=== PATIENT | female | born 1960 | race Two or more races ===

== ENCOUNTER 2017-12-13 10:29 | Outpatient (CLI) | payer OTHER | END 2017-12-13 10:48 | disposition home or self-care (01) | LOC: RAD 501 10:29 | DX: M25.571 Pain in right ankle and joints of right foot (principal) ==

== ENCOUNTER 2018-10-07 14:01 | Outpatient (CLI) | payer OTHER | END 2018-10-07 14:09 | disposition home or self-care (01) | LOC: MAMO-SONO 14:01 | DX: N95.0 Postmenopausal bleeding (principal); Z12.31 Encounter for screening mammogram for malignant neoplasm of breast; F32.89 Other specified depressive episodes ==

== ENCOUNTER → 2018-10-14 | Outpatient (CLI) | payer OTHER | END | disposition home or self-care (01) | LOC: SONOGRAMA 14:26 | DX: N60.29 Fibroadenosis of unspecified breast (principal) ==

== ENCOUNTER → 2018-10-14 | Outpatient (CLI) | payer OTHER | END | disposition home or self-care (01) | LOC: NUCLEAR 10-07 14:00 | DX: M81.0 Age-related osteoporosis without current pathological fracture (principal) ==

== ENCOUNTER → 2019-07-06 | Emergency (ER) | payer OTHER ==
[~2019-07-06] VITALS: Ht 167.6 cm; Wt 90.7 kg
[~2019-07-06] MED LIST: [UNRECOGNIZED DRUG - OTHER]
== END | disposition home or self-care (01) ==
LOC: ER 16:03
DX: R42 Dizziness and giddiness (principal); G44.209 Tension-type headache, unspecified, not intractable

== ENCOUNTER 2020-01-06 12:31 | Emergency (ER) | payer OTHER ==
[~2020-01-06] VITALS: Ht 167.6 cm; Wt 90.7 kg
[2020-01-06] MEDS ORDERED: SINGULAIR10 MG PO (13:06)
[2020-01-06] MEDS ORDERED: SYMBICORT 16010.2 GM IH (13:06)
[2020-01-06] MEDS ORDERED: AVAPRO150 MG PO (13:07)
[2020-01-06] MEDS ORDERED: SYNTHROID50 MCG PO (13:08)
== END 2020-01-06 21:23 | disposition home or self-care (01) ==
LOC: ER 12:31
DX: K29.60 Other gastritis without bleeding (principal); Z03.818 Encounter for observation for suspected exposure to other biological agents ruled out; R10.32 Left lower quadrant pain; R11.2 Nausea with vomiting, unspecified; R19.7 Diarrhea, unspecified

== ENCOUNTER 2022-10-10 11:19 | Emergency (ER) | payer OTHER ==
[~2022-10-10] VITALS: Ht 167.6 cm; Wt 90.7 kg
[~2022-10-10 11:19] MED LIST changes: +AVAPRO150 MG PO; +SINGULAIR10 MG PO; +SYMBICORT 16010.2 GM IH; +SYNTHROID50 MCG PO
== END 2022-10-10 15:45 | disposition home or self-care (01) ==
LOC: ER 11:19
DX: U07.1 COVID-19 (principal); Z88.6 Allergy status to analgesic agent; I10 Essential (primary) hypertension; E03.9 Hypothyroidism, unspecified

== ENCOUNTER 2023-09-09 08:48 | Emergency (ER) | payer OTHER ==
[~2023-09-09] VITALS: Ht 167.6 cm; Wt 95.7 kg
[2023-09-09] MEDS ORDERED: LOSARTAN POTASS50 MG PO (09:13)
[2023-09-09 10:45] LABS: HEMATOCRIT 40.1 % (36.0-45.00); HEMOGLOBIN 14.1 g/dL (12.0-15.00); MEAN CORPUSCULAR HEMOGLOBIN 30.6 pg (27.00-32.0); MEAN CORPUSCULAR HGB CONC 35.2 g/dl (32.0-36.0); PLATELET COUNT 260 K/uL (150-450); RED BLOOD COUNT 4.61 M/uL (4.00-6.00); RED CELL DISTRIBUTION WIDTH 13.7 % (11.5-14.5)
[2023-09-09 11:00] LABS: CALCIUM 8.9 mg/dL (8.5-10.1); CREATININE SERUM 0.88 mg/dL (0.55-1.02); GFR 64.69; POTASSIUM 3.75 mEq/L (3.5-5.1)
[2023-09-09 11:08] LABS: PH,URINE 5.5 (5.0-8.0); URINE APPEARANCE Cloudy; URINE BILIRRUBIN Negative (NEGATIVE); URINE BLOOD Small; URINE COLOR Yellow; URINE GLUCOSE Negative (NEGATIVE); URINE LEUKOCYTE Moderate; URINE NITRATE Positive; URINE PROTEIN Negative (NEGATIVE); URINE UROBILINOGEN 0.2 E.U./dl
[2023-09-09 11:12] LABS: URINE EPITHELIAL CELLS 47.4 uL (0.0-38.8); URINE WBC 190.9 uL (0.0-23.2)
[2023-09-09 12:14] LABS: URINE BACTERIA > 9821.5 uL (0.0-1933)
[2023-09-09 12:15] LABS: URINE CRYSTALS FEW /HPF
== END 2023-09-09 16:03 | disposition home or self-care (01) ==
LOC: ER 08:49
PROVIDERS: General Practice
DX: M54.9 Dorsalgia, unspecified (principal); N39.0 Urinary tract infection, site not specified; M54.50 Low back pain, unspecified; Z88.6 Allergy status to analgesic agent

== ENCOUNTER 2023-10-07 12:43 | Outpatient (CLI) | payer OTHER ==
[~2023-10-07 12:43] MED LIST changes: +LOSARTAN POTASS50 MG PO
== END 2023-10-07 12:51 | disposition home or self-care (01) ==
LOC: MRI 12:43
PROVIDERS: ATTEND Internal Medicine Rheumatology
DX: M54.59 Other low back pain (principal); M05.79 Rheumatoid arthritis with rheumatoid factor of multiple sites without organ or systems involvement; M47.814 Spondylosis without myelopathy or radiculopathy, thoracic region; M47.817 Spondylosis without myelopathy or radiculopathy, lumbosacral region

== ENCOUNTER 2024-03-13 11:58 | Emergency (ER) | payer OTHER ==
[~2024-03-13] VITALS: Ht 167.6 cm; Wt 95.3 kg
[2024-03-13] MEDS ORDERED: MECLIZINE HCL 25 MG TABLET PO STA (13:50)
[2024-03-13] MEDS ORDERED: MECLIZINE HCL 25 MG TABLET PO ONE (14:10)
[2024-03-13 14:34] LABS: HEMATOCRIT 38.2 % (36.0-45.00); HEMOGLOBIN 13.4 g/dL (12.0-15.00); MEAN CORPUSCULAR HEMOGLOBIN 31.3 pg (27.00-32.0); MEAN CORPUSCULAR HGB CONC 35.2 g/dl (32.0-36.0); PLATELET COUNT 264 K/uL (150-450); RED BLOOD COUNT 4.29 M/uL (4.00-6.00); RED CELL DISTRIBUTION WIDTH 13.9 % (11.5-14.5)
[2024-03-13 15:08] LABS: ALBUMIN 3.5 gm/dL (3.4-5.0); BILIRUBIN TOTAL 0.41 mg/dL (0.3-1.2); CREATININE SERUM 0.9 mg/dL (0.55-1.02); GFR 62.84; GLOBULINA 3.5 G/DL (2.4-3.5); POTASSIUM 3.79 mEq/L (3.5-5.1)
== END 2024-03-13 17:03 | disposition home or self-care (01) ==
LOC: ER 11:59
PROVIDERS: General Practice
DX: R42 Dizziness and giddiness (principal)

== ENCOUNTER 2024-06-30 15:29 | Inpatient (IN) | payer OTHER ==
[~2024-06-30] VITALS: Ht 152.4 cm; Wt 97.5 kg
--- NOTE | 2024-06-30 15:50 | NUR ---
PACIENTE ALERTA Y ORIENTADA X 3. REFIERE TENER ASMA DESDE SHELDON LO QUE LE DIFICULTA RESPIRAR.
[2024-06-30] MEDS ORDERED: ALBUTEROL SULFATE 3 ML/2.5 MG AMPUL.NEB IH SCH (20:00)
[2024-06-30] MEDS ORDERED: GUAIFENESIN/DEXTROMETHORPHAN 10ML BLIST.PACK PO STA (20:00)
[2024-06-30] MEDS ORDERED: IPRATROPIUM BROMIDE 0.5 MG/2.5 ML AMPUL.NEB IH SCH (20:00)
[2024-06-30] MEDS ORDERED: METHYLPREDNISOLONE SOD SUCC 40 MG VIAL IV STA (20:01)
[2024-06-30 20:39] LABS: HEMATOCRIT 37.6 % (36.0-45.00); HEMOGLOBIN 13.3 g/dL (12.0-15.00); MEAN CELL VOLUME 88.8 fL (80.00-100.00); MEAN CORPUSCULAR HEMOGLOBIN 31.4 pg (27.00-32.0); MEAN CORPUSCULAR HGB CONC 35.4 g/dl (32.0-36.0); PLATELET COUNT 239 K/uL (150-450); RED BLOOD COUNT 4.24 M/uL (4.00-6.00); RED CELL DISTRIBUTION WIDTH 13.7 % (11.5-14.5)
[2024-06-30 21:00] LABS: CREATININE SERUM 1.16 mg/dL (0.55-1.02); GFR 46.88; POTASSIUM 3.79 mEq/L (3.5-5.1)
--- NOTE | 2024-06-30 21:04 | NUR ---
SE COLECTAN MUESTRAS DE LABORATORIO Y SE ADMINISTRAN MEDICAMENTOS ADELAIDE ORDEN MEDICA BAJO MEDIDAS ASEPTICAS. SE NOTIFICAN TERAPIAS Y ABGS PENDIENTES. SE NOTIFICA X-RAY
[2024-06-30] MEDS ORDERED: LOSARTAN POTASSIUM 50 MG TABLET PO SCH (23:20)
[2024-06-30] MEDS ORDERED: OSELTAMIVIR PHOSPHATE 75 MG CAPSULE PO STA (23:21)
[2024-06-30] MEDS ORDERED: ACETAMINOPHEN 325 MG TABLET PO PRN (23:30)
[2024-07-01] MEDS ORDERED: GUAIFENESIN 100 MG/5 ML BLIST.PACK PO SCH
[2024-07-01 00:08] LABS: ABG PH 7.489 (7.35-7.45); ABG pCO2 28.5 mmHg (35-45)
[2024-07-01 00:09] LABS: ABG PO2 63.4 mmHg (80-100); BASE EXCESS -0.8 mmol/l; BICARBONATE 21.2 mmol/l (23-25); SaO2 93.7 %
[2024-07-01 00:10] LABS: allen test SATISFACTORY; o2 21 %; puncture site RADIAL RIGHT
[2024-07-01] MEDS ORDERED: LEVALBUTEROL HCL 0.63 MG/3 ML SOLUTION IH SCH (01:00)
[2024-07-01] MEDS ORDERED: LEVOTHYROXINE SODIUM 50 MCG TABLET PO SCH (06:00)
[2024-07-01 06:35] LABS: CREATININE SERUM 0.9 mg/dL (0.55-1.02); GFR 62.84; POTASSIUM 4.05 mEq/L (3.5-5.1)
[2024-07-01 06:41] LABS: C-REACTIVE PROTEIN 9.85 MG/DL (0.00-0.29)
[2024-07-01 08:30] VITALS: BP 146/91; O2SAT 100
[2024-07-01 08:45] VITALS: BP 148/78; O2SAT 96
[2024-07-01] MEDS ORDERED: levoFLOXacin IN DEXTROSE 5 % 500MG/100ML PIGGYBAG IV NR (10:00)
[2024-07-01] MEDS ORDERED: OSELTAMIVIR PHOSPHATE 75 MG CAPSULE PO NR (10:00)
[2024-07-01] MEDS ORDERED: RIVAROXABAN 10 MG TAB PO NR (10:00)
[2024-07-01] MEDS ORDERED: BUDESONIDE 0.5 MG/2 ML AMPUL.NEB IH NR (10:00)
[2024-07-01] MEDS ORDERED: PANTOPRAZOLE SODIUM 40 MG TABLET.DR PO NR (10:00)
[2024-07-01] MEDS ORDERED: LEVALBUTEROL HCL 1.25 MG/3 ML SOLUTION IH SCH (13:00)
[2024-07-01 16:00] VITALS: BP 113/77; O2SAT 99
[2024-07-01] MEDS ORDERED: OSELTAMIVIR PHOSPHATE 75 MG CAPSULE PO SCH (17:00)
[2024-07-01] MEDS ORDERED: METHYLPREDNISOLONE SOD SUCC 40 MG VIAL IV SCH ×2 (17:00)
[2024-07-01] MEDS ORDERED: BUDESONIDE 0.5 MG/2 ML AMPUL.NEB IH SCH (21:00)
[2024-07-02] VITALS: BP 115/74; O2SAT 100
[2024-07-02 08:28] VITALS: BP 107/62; O2SAT 99
[2024-07-02] MEDS ORDERED: PANTOPRAZOLE SODIUM 40 MG TABLET.DR PO SCH (09:00)
[2024-07-02] MEDS ORDERED: RIVAROXABAN 10 MG TAB PO SCH (09:00)
[2024-07-02] MEDS ORDERED: levoFLOXacin IN DEXTROSE 5 % 500MG/100ML PIGGYBAG IV SCH (09:00)
[2024-07-02] MEDS ORDERED: METHYLPREDNISOLONE ACETATE 80 MG/ML VIAL IM NR (12:15)
[2024-07-02] MEDS ORDERED: METHYLPREDNISOLONE SOD SUCC 40 MG VIAL IV SCH (21:00)
[2024-07-02 21:07] LABS: ABG PH 7.432 (7.35-7.45)
[2024-07-02 21:08] LABS: ABG PO2 88.4 mmHg (80-100); ABG pCO2 29.4 mmHg (35-45); BASE EXCESS -3.7 mmol/l; BICARBONATE 19.2 mmol/l (23-25); Tco2 20.1 mmol/l; allen test SATISFACTORY; o2 21 %; puncture site RADIAL LEFT
[2024-07-03] VITALS: BP 117/74; O2SAT 97
[2024-07-03 08:00] VITALS: BP 128/64; O2SAT 100
[2024-07-03] MEDS ORDERED: METHYLPREDNISOLONE SOD SUCC 40 MG VIAL IV SCH (09:00)
[2024-07-03 16:11] VITALS: BP 128/65; O2SAT 98
[2024-07-03] MEDS ORDERED: OSEL75CA PO (17:24)
[2024-07-03] MEDS ORDERED: CIPRO500 MG PO (17:43)
[2024-07-03] MEDS ORDERED: [UNRECOGNIZED DRUG - OTHER] PO (17:44)
[2024-07-03] MEDS ORDERED: BUDEO.25 IH (17:47)
[2024-07-03] MEDS ORDERED: MEDROLPACK PO (17:48)
[2024-07-03] MEDS ORDERED: XOPENEX CO1.25 MG/0. IH (17:49)
== END 2024-07-03 20:55 | disposition home or self-care (01) | DRG 203 ==
LOC: ER 15:31 → SURH 23:21 → SEC-K 23:21 → SURH 07-01 05:53
PROVIDERS: General Practice; ADMIT Internal Medicine; ATTEND Internal Medicine
DX: J45.51 Severe persistent asthma with (acute) exacerbation (principal); J10.1 Influenza due to other identified influenza virus with other respiratory manifestations; R09.02 Hypoxemia; I10 Essential (primary) hypertension; E03.9 Hypothyroidism, unspecified

== ENCOUNTER 2024-08-03 13:00 | Outpatient (CLI) | payer OTHER ==
[~2024-08-03 13:00] MED LIST changes: +BUDEO.25 IH; +CIPRO500 MG PO; +MEDROLPACK PO; +OSEL75CA PO; +XOPENEX CO1.25 MG/0. IH; +[UNRECOGNIZED DRUG - OTHER] PO
== END 2024-08-03 13:34 | disposition home or self-care (01) ==
LOC: MAMO-SONO 13:00
DX: Z12.31 Encounter for screening mammogram for malignant neoplasm of breast (principal)

== ENCOUNTER 2024-10-12 15:10 | Outpatient (CLI) | payer OTHER | END 2024-10-12 15:15 | disposition home or self-care (01) | LOC: RAD 15:10 | PROVIDERS: ATTEND Internal Medicine Rheumatology | DX: M05.79 Rheumatoid arthritis with rheumatoid factor of multiple sites without organ or systems involvement (principal) ==

== ENCOUNTER 2025-07-12 15:57 | Emergency (ER) | payer OTHER ==
[~2025-07-12] VITALS: Ht 167.6 cm; Wt 97.5 kg
[2025-07-12] MEDS ORDERED: IPRATROPIUM BROMIDE 0.5 MG/2.5 ML AMPUL.NEB IH ONE (19:30)
[2025-07-12] MEDS ORDERED: ALBUTEROL SULFATE 3 ML/2.5 MG AMPUL.NEB IH SCH (19:30)
[2025-07-12] MEDS ORDERED: GUAIFENESIN 200 MG/10 ML BLIST.PACK PO ONE (19:30)
[2025-07-12] MEDS ORDERED: 0.9 % SODIUM CHLORIDE 1,000 ML IV ONE (19:30)
[2025-07-12] MEDS ORDERED: CEFTRIAXONE SODIUM 1,000 MG VIAL IV ONE (19:30)
[2025-07-12] MEDS ORDERED: ACETAMINOPHEN 500 MG GEL..CAP PO ONE (19:30)
[2025-07-12] MEDS ORDERED: METHYLPREDNISOLONE SOD SUCC 125 MG VIAL IV ONE (19:30)
[2025-07-12 19:41] LABS: BASO % 0.2 % (0.1-1.2); EOS # 0.01 (0.04-0.54); EOS % 0.2 % (0.7-7.0); LYMPH # 0.49 (1.18-3.74); LYMPH % 12.2 % (19.3-53.1); MEAN PLATELET VOLUME 8.90 fl (9.4-12.4); MONO # 0.42 (0.24-0.82); MONO % 10.5 % (4.7-12.5); NEUT # 3.06 (1.56-6.13); NEUT % 76.4 % (34.0-71.1); RED CELL DISTRIBUTION WIDTH 15.0 % (11.6-14.4)
[2025-07-12 19:58] LABS: ERYTHROCYTE SEDIMENTATION RATE 20 mm/hr (0-30)
[2025-07-12 20:00] LABS: INR 1.04
[2025-07-12 20:04] LABS: ALT/SGPT 55.0 U/L (12-78); AST/SGOT 30.0 U/L (15-37); BILIRUBIN TOTAL 0.88 mg/dL (0.3-1.2); BUN CREA RATIO 14.0 (7.0-25.0); CREATININE SERUM 1.03 mg/dL (0.55-1.02); GFR 53.61; GLOBULINA 4.2 G/DL (2.4-3.5); GLUCOSE FASTING 124.0 mg/dL (65-100); OSMOLALITY SERUM 276.0 MOSM/KG (275-295)
[2025-07-12 21:31] LABS: COVID-19 AG NEGATIVE (NEGATIVE)
[2025-07-12] MEDS ORDERED: OSELTAMIVIR PHOSPHATE 75 MG CAPSULE PO ONE (21:45)
[2025-07-13 01:36] LABS: URINE APPEARANCE Clear; URINE BILIRRUBIN Negative (NEGATIVE); URINE BLOOD Small; URINE COLOR Yellow; URINE GLUCOSE Negative (NEGATIVE); URINE KETONE 15 (NEGATIVE); URINE LEUKOCYTE Trace; URINE NITRATE Negative; URINE PROTEIN Negative (NEGATIVE); URINE UROBILINOGEN 0.2 E.U./dl
[2025-07-13 01:39] LABS: URINE BACTERIA 11.9 uL (0.0-1933); URINE EPITHELIAL CELLS 10.1 uL (0.0-38.8); URINE RBC 9.2 uL (0.0-20.8); URINE WBC 39.0 uL (0.0-23.2)
[2025-07-13 01:43] LABS: URINE CAST 0.00 uL (0.0-1.40)
[2025-07-13] MEDS ORDERED: PEPCID AC20 MG PO (03:40)
[2025-07-13] MEDS ORDERED: LEVALBUTER0.63 MG/3 IH (03:40)
[2025-07-13] MEDS ORDERED: OSEL75CA PO (03:40)
[2025-07-13] MEDS ORDERED: BENZONATATE200 M1 PO (03:40)
== END 2025-07-13 04:24 | disposition home or self-care (01) ==
LOC: ER 15:58
DX: J10.1 Influenza due to other identified influenza virus with other respiratory manifestations (principal); Z20.822 Contact with and (suspected) exposure to COVID-19; E03.9 Hypothyroidism, unspecified; Z88.6 Allergy status to analgesic agent; Z87.09 Personal history of other diseases of the respiratory system